=== PATIENT | female | born 1985 | race Caucasian/White ===

== ENCOUNTER 2025-01-31 21:23 | Emergency (ER) | payer BC, SELFPAY ==
--- NOTE | ~2025-01-31 | XR_ITS ---
CLINICAL HISTORY: chest pain 1 view chest x-ray Comparison: None Findings: The lungs are clear. Normal size heart. No acute fracture. IMPRESSION: 1. No acute findings. This document has been electronically signed by: Sonia Serrato MD on 01/31/2025 22:17:02
--- NOTE | 2025-01-31 21:26 | ECG_ITS ---
Test Reason : cp Blood Pressure : */* mmHG Vent. Rate : 96 BPM Atrial Rate : 96 BPM P-R Int : 162 ms QRS Dur : 92 ms QT Int : 350 ms P-R-T Axes : 34 -18 16 degrees QTcB Int : 442 ms Normal sinus rhythm Minimal voltage criteria for LVH, may be normal variant ( R in aVL ) Borderline ECG No previous ECGs available Referred By: Generic ED Physician Electronically Signed By: ENRIQUETA RODRIGUEZ
[2025-01-31 21:30] VITALS: BP 154/86; PULSE 97; RESP 18; TEMP 36.7; O2SAT 99; BMI 42.4
[2025-01-31 21:46] LABS: MANUAL DIFF FLAG NO
[2025-01-31 21:54] LABS: Basophils Percent Auto 0.3 % (0-2); Eosinophils Absolute Auto 0.1 X10*3/uL (0.0-0.4); Eosinophils Percent Auto 0.9 % (0-4); Hematocrit 40.9 % (37.0-47.0); Hemoglobin 13.6 g/dl (12.0-16.0); Imm Gran Abs Auto 0.05 X10*3/uL (0.00-0.03); Imm Gran Pct Auto 0.4 % (0.0-0.4); Lymphocytes Absolute Auto 2.7 X10*3/uL (1.2-4.9); Lymphocytes Percent Auto 22.2 % (20-40); Mean Corpuscular HGB Conc 33.3 g/dl (31.0-35.0); Mean Corpuscular Hemoglobin 26.1 pg (27.0-33.0); Mean Corpuscular Volume 78.4 fL (80.0-98.0); Mean Platelet Volume 10.1 fL (9.4-12.3); Monocytes Absolute Auto 0.7 X10*3/uL (0.1-1.2); Monocytes Percent Auto 5.6 % (2-11); Neutrophils Absolute Auto 8.5 x10*3/uL (2.0-8.3); Neutrophils Percent Auto 70.6 % (45-73); Platelet Count 257 X10*3/uL (160-400); Red Blood Count 5.22 X10*6/uL (4.20-5.50); Red Cell Distribution Width 12.5 % (11.0-16.0); White Blood Count 12.1 X10*3/uL (4.8-10.8)
[2025-01-31 22:04] LABS: Alanine Aminotransferase 32 U/L (0-31); Albumin Level 4.3 g/dL (3.5-5.0); Alkaline Phosphatase 53 U/L (39-117); Anion Gap 13 (12-20); Aspartate Amino Transferase 23 U/L (5-31); Bilirubin Total 0.3 mg/dL (0.0-1.0); Blood Urea Nitrogen 13 mg/dL (9-16); Calcium 9.5 mg/dL (8.4-10.2); Carbon Dioxide 25 mmol/L (22-29); Chloride 106 mmol/L (96-108); Creatinine Clr Calc Pharmacy 77.9; Estimated Glomerular Filt Rate 60; Glucose Random 112 mg/dL (60-115); Potassium 3.8 mmol/L (3.3-5.1); Sodium 140 mmol/L (135-145); Total Protein 7.4 g/dL (6.5-8.0)
[2025-01-31 22:12] LABS: Troponin-I High Sensitivity < 2.7 ng/L (<3.5-17.0)
[2025-01-31 22:15] VITALS: PULSE 91
--- NOTE | 2025-01-31 22:51 | ED.CHESTPAIN ---
HPI - Chest Pain General Chief Complaint: Chest Pain Stated Complaint: chest pain / feels like anxiety attack Time Seen by Provider: 01/31/25 22:47 Source: patient Mode of arrival: ambulatory Limitations: no limitations History of Present Illness ED Provider: HPI narrative: patient's history of increased anxiety complaining of chest pain for last few days sharp off and on in the mid chest in the back no shortness a breath pain lasting only for few sec Related Data Previous Rx's ?Medication ?Instructions ?Recorded ibuprofen 600 mg tablet 600 mg PO Q6H PRN fever or pain 01/31/25 #30 tabs Allergies Allergy/AdvReac Type Severity Reaction Status Date / Time morphine Allergy Hives Verified 01/31/25 21:35 Review of Systems Review of Systems: Yes all other systems are reviewed and are negative [facility] Social History Social History Smoked in Last 30 Days: No Use of substances other than those prescribed or required for medical reasons: No Advance Directives: No Advance Directives Information Provided: No Do you have a plan to hurt others: No Plan Patient : No Physical Exam Vital Signs: Vital Signs: Last Vital Signs Temp 98.3 F 01/31/25 23:31 Pulse 81 01/31/25 23:31 Resp 18 01/31/25 23:31 BP 132/70 01/31/25 23:31 Pulse Ox 95 01/31/25 23:31 O2 Del Method Room Air 01/31/25 23:31 BMI result Body Mass Index 42.4 Appearance: Alert. Oriented X3. No acute distress. Eyes: PERRLA, No Nystagmus ENT: Pharynx normal. Oral Mucosa moist Neck: Normal inspection. Neck supple. CVS: Normal heart rate and rhythm. Pulses normal. Respiratory: No respiratory distress. Equal air entry bilateral, no wheezing/rales/rhonchi Abdomen: Soft and nontender. Bowel sounds are present, no mass palpable, no CVA tenderness Skin: Skin warm and dry. Normal skin color. Normal skin turgor. Extremities: No lower extremity edema. No calf tenderness Neuro: Oriented X 3. No motor deficit. No sensory deficit.No cerebellar signs , cranial nerves II-XII intact Medications Administered Discontinued Medications Generic Name Dose Route Start Last Admin Trade Name Freq PRN Reason Stop Dose Admin Ibuprofen 600 mg 01/31/25 23:09 01/31/25 23:24 Ibuprofen 600 Mg Tablet PO 01/31/25 23:10 600 mg ONCE ONE Administration Medical Decision Making Medical Decision Making [facility] Narrative: patient's heart score of 0 with a atypical chest pain with cardiac enzymes and EKG negative with history of anxiety will discharge patient home advised to take her anxiety medication/ibuprofen Lab Data [facility] Lab Attestation statement: I reviewed the patient's lab results. 01/31/25 21:42 01/31/25 21:42 Labs: Lab Results 01/31/25 Range/Units 21:42 WBC 12.1 H (4.8-10.8) X10*3/uL RBC 5.22 (4.20-5.50) X10*6/uL Hgb 13.6 (12.0-16.0) g/dl Hct 40.9 (37.0-47.0) % MCV 78.4 L (80.0-98.0) fL MCH 26.1 L (27.0-33.0) pg MCHC 33.3 (31.0-35.0) g/dl RDW 12.5 (11.0-16.0) % Plt Count 257 (160-400) X10*3/uL MPV 10.1 (9.4-12.3) fL Immature Gran % (Auto) 0.4 (0.0-0.4) % Neut % (Auto) 70.6 (45-73) % Lymph % (Auto) 22.2 (20-40) % Banner % (Auto) 5.6 (2-11) % Eos % (Auto) 0.9 (0-4) % Baso % (Auto) 0.3 (0-2) % Lymph # (Auto) 2.7 (1.2-4.9) X10*3/uL Banner # (Auto) 0.7 (0.1-1.2) X10*3/uL Eos # (Auto) 0.1 (0.0-0.4) X10*3/uL Baso # (Auto) 0.0 (0.0-0.2) X10*3/uL Abs Immat Gran (auto) 0.05 H (0.00-0.03) X10*3/uL Absolute Neuts (auto) 8.5 H (2.0-8.3) x10*3/uL Absolute Nucleated RBC 0.000 (0.0-0.012) X10*3/uL Nucleated RBC % (auto) 0.0 (0.0-0.2) /100WBC Sodium 140 (135-145) mmol/L Potassium 3.8 (3.3-5.1) mmol/L Chloride 106 (96-108) mmol/L Carbon Dioxide 25 (22-29) mmol/L Anion Gap 13 (12-20) BUN 13 (9-16) mg/dL Creatinine 1.03 (0.5-1.4) mg/dL Estim Creat Clear Calc 77.9 Estimated GFR 60 Random Glucose 112 (60-115) mg/dL Calcium 9.5 (8.4-10.2) mg/dL Total Bilirubin 0.3 (0.0-1.0) mg/dL AST 23 (5-31) U/L ALT 32 H (0-31) U/L Alkaline Phosphatase 53 (39-117) U/L Troponin I High Sens < 2.7 (<3.5-17.0) ng/L Total Protein 7.4 (6.5-8.0) g/dL Albumin 4.3 (3.5-5.0) g/dL Independent Interpretation I performed an independent interpretation of an: EKG Interpretation: normal sinus rhythm heart rate 96 beats per minute normal interval normal axis no acute STT wave changes no acute ischemia Discharge Plan Discharge Clinical Impression: Costalchondritis, Anxiety Patient Disposition: Home, Self-Care Instructions: Costochondritis (ED), Anxiety (ED) Additional Instructions: take ibuprofen for pain as advised continue medication for anxiety follow up with your PCP Prescriptions: New ibuprofen 600 mg tablet 600 mg PO Q6H PRN (Reason: fever or pain) Qty: 30 0RF Interventions: ED Discharge Assessment Last Done: 01/31/25 23:31 Discharge Date/Time: 01/31/25 23:32 Print Language: Sudanese
[2025-01-31 23:08] VITALS: BP 132/72; PULSE 81; RESP 18; TEMP 36.8; O2SAT 95
[2025-01-31] MEDS: Ibuprofen 600 MG TABLET PO (23:24)
[2025-01-31 23:31] VITALS: BP 132/70; PULSE 81; RESP 18; TEMP 36.8; O2SAT 95
== END 2025-01-31 23:32 | disposition home or self-care (01) ==
PROVIDERS: Emergency Provider Internal Medicine; PCP Internal Medicine
DX: M94.0 Chondrocostal junction syndrome [Tietze] (principal); R07.89 Other chest pain; F41.9 Anxiety disorder, unspecified; M54.50 Low back pain, unspecified; R79.89 Other specified abnormal findings of blood chemistry; Z79.899 Other long term (current) drug therapy
CPT/HCPCS: 36415; 71045; 80053; 84484; 85025; 93005; 99283; 99285

== ENCOUNTER → 2025-01-31 21:26 | Outpatient (BNV) | payer BC, SELFPAY | PROVIDERS: Emergency Provider Internal Medicine; PCP Internal Medicine; Visit Provider Internal Medicine | DX: R07.9 Chest pain, unspecified (principal) | CPT/HCPCS: 93010 ==

== ENCOUNTER → 2025-01-31 21:37 | Outpatient (BNV) | payer BC, SELFPAY | PROVIDERS: Emergency Provider Internal Medicine; PCP Internal Medicine; Visit Provider Student in an Organized Health Care Education/Training Program | DX: R07.9 Chest pain, unspecified (principal) | CPT/HCPCS: 71045 ==